=== PATIENT | male | born 1965 | race Caucasian/White ===

== ENCOUNTER 2017-06-11 12:47 | Emergency (ER) | payer BC, MEDICAID ==
[2017-06-11] MEDS ORDERED: Lidocaine 1% 20 ML MDV INJECT ONE (13:24)
[2017-06-11] MEDS ORDERED: Bacitracin Oint 1 GM U/D Packet TOP ONE (13:25)
[2017-06-11] MEDS ORDERED: Bacitracin Oint 1 GM U/D Packet ONE (14:14)
[2017-06-11] MEDS ORDERED: Lidocaine 1% 20 ML MDV ONE (14:14)
--- NOTE | 2017-06-11 14:46 | EDM.PDOC ---
ED HPI GENERAL MEDICAL PROBLEM - General Chief Complaint: Laceration Stated Complaint: RIGHT HAND PINCHED FROM FISH HOUSE Time Seen by Provider: 06/11/17 13:20 Source of Information: Reports: Patient History Limitations: Reports: No Limitations - History of Present Illness INITIAL COMMENTS - FREE TEXT/NARRATIVE: pt had some one back over a hitch with his hand on it. His rt thumb was twisted and has alot of pain when he moves the thumb. He has a 2 inch laceration on the inner aspect of the thumb. Onset: Today Duration: Hour(s): Location: Reports: Upper Extremity, Right Associated Symptoms: Reports: Other (pt had motion of the thumb but it was painful He had normal sensation at the tip of thre thumb. ) Right Hand Pain Score (Numeric/FACES): 10 - Related Data Allergies Allergy/AdvReac Type Severity Reaction Status Date / Time No Known Allergies Allergy Verified 06/11/17 13:26 Home Meds: Home Meds Sertraline HCl [Zoloft] 100 mg PO DAILY 06/11/17 [History] Past Medical History Psychiatric History: Reports: Depression Social & Family History - Tobacco Use Smoking Status *Q: Current Every Day Smoker Years of Tobacco use: 30 Packs/Tins Daily: 0.5 - Caffeine Use Caffeine Use: Reports: Coffee - Recreational Drug Use Recreational Drug Use: No ED ROS GENERAL - Review of Systems Review Of Systems: See Below Constitutional: Reports: No Symptoms HEENT: Reports: No Symptoms Respiratory: Reports: No Symptoms Cardiovascular: Reports: No Symptoms Endocrine: Reports: No Symptoms GI/Abdominal: Reports: No Symptoms : Reports: No Symptoms Musculoskeletal: Reports: Other ( injury to the rt thumb with a trailer hitch) ED EXAM, SKIN/RASH Exam: See Below Text/Narrative:: Pt had an injury to the thumb with a trailer huitch, He has alot of pain with movement of the thumb and he had normal sensation at the tip of the thumb. He was able to flex the thumb and extend it.He had xrays which revealed no fracture present. He had a 2 inch laceration on the inner aspect of the thumb near the knuckle. Extremities: Other ( 2 ich laceration at the inner aspect of the thumb near the knuckle. ) Course - Vital Signs Last Recorded V/S: Last Vital Signs Temp 36.2 C 06/11/17 15:15 Pulse 78 06/11/17 15:15 Resp 16 06/11/17 15:15 BP 126/79 06/11/17 15:15 Pulse Ox 98 06/11/17 15:15 - Orders/Labs/Meds Orders: Active Orders 24 hr Category Date Time Status Vaccines to be Administered [RC] PER UNIT ROUTINE Care 06/11/17 14:52 Active Hand Comp Min 3V Rt [CR] Stat Exams 06/11/17 13:23 Taken Meds: Medications Discontinued Medications Generic Name Dose Route Start Last Admin Trade Name Jaja PRN Reason Stop Dose Admin Bacitracin 1 dose 06/11/17 13:25 06/11/17 14:20 Bacitracin Oint 1 Gm TOP 06/11/17 13:26 1 dose ONETIME ONE Administration Bacitracin Confirm 06/11/17 14:14 06/11/17 14:55 Bacitracin Oint 1 Gm Administered 06/11/17 14:15 Not Given Dose 1 dose .ROUTE .STK-MED ONE Diphtheria/Tetanus/Acell Pertussis 0.5 ml 06/11/17 14:52 06/11/17 15:01 Adacel IM 06/11/17 14:53 0.5 ml .ONCE ONE Administration Lidocaine HCl 20 ml 06/11/17 13:24 06/11/17 14:20 Xylocaine 1% INJECT 06/11/17 13:25 20 ml ONETIME ONE Administration Lidocaine HCl Confirm 06/11/17 14:14 06/11/17 14:55 Xylocaine 1% Administered 06/11/17 14:15 Not Given Dose 20 ml .ROUTE .STK-MED ONE - Re-Assessments/Exams Free Text/Narrative Re-Assessment/Exam: 06/11/17 14:47 He was xrayed and no chips or fractures were seen. The wound was cleaned well and infiltrated with lidocaine. The wound was closwed with 5-0 chromic and 5-0 prolene. It was dressed with bacatraCIN AND HE WILL FOLLOW UP WITH dR John Viramontes. Departure - Departure Time of Disposition: 14:49 Disposition: Home, Self-Care 01 Condition: Fair Clinical Impression: Laceration, Injury of right thumb - Discharge Information Instructions: Laceration Care, Adult, [id number] Referrals: PCP,None [Primary Care Provider] - Forms: ED Department Discharge Care Plan Goals: APPT WITH dR JOHN Viramontes MID WEEK, MOTRIN 600MG Q6H PRN FOR PAIN, COOL PACK OVER THE DRESSING. SR IN 7-8 DAYS. NORCO 5/325 Q6H PRN FOR SEVERE PAIN - My Orders Last 24 Hours: My Active Orders 06/11/17 13:23 Hand Comp Min 3V Rt [CR] Stat 06/11/17 14:52 Vaccines to be Administered [RC] PER UNIT ROUTINE - Assessment/Plan Last 24 Hours: My Active Orders 06/11/17 13:23 Hand Comp Min 3V Rt [CR] Stat 06/11/17 14:52 Vaccines to be Administered [RC] PER UNIT ROUTINE
[2017-06-11] MEDS ORDERED: Diphtheria,Pertussis(Acell),Tetanus Vaccine 0.5 ML SDV IM ONE (14:52)
--- NOTE | 2017-06-13 08:48 | CR ---
Hand Comp Min 3V Rt HISTORY: jamming injury to thumb. FINDINGS: No acute fracture or dislocation is identified. Bony architecture and joint spaces are preserved. S oft tissue laceration is noted. IMPRESSION: Soft tissue laceration right thumb. No acute fracture or dislocation is identified.
== END 2017-06-11 15:15 | disposition home or self-care (01) ==
LOC: JP.ED 12:47
DX: S61.011A Laceration without foreign body of right thumb without damage to nail, initial encounter (principal); F17.210 Nicotine dependence, cigarettes, uncomplicated; F31.9 Bipolar disorder, unspecified; X50.1XXA Overexertion from prolonged static or awkward postures, initial encounter
CPT/HCPCS: 12001; 12002; 73130-26-RT; 73130-RT; 90471; 90715; 99282-25; 99284-25

== ENCOUNTER 2017-10-26 13:04 | Observation (INO) | payer MEDICAID ==
[2017-10-26] MEDS ORDERED: LORazepam 2 MG/ML SDV IVPUSH ONE (13:07)
[2017-10-26] MEDS ORDERED: HYDROmorphone 1 MG/ML Syringe IVPUSH ONE ×2 (13:08→23:24)
--- NOTE | 2017-10-26 13:17 | EDM.PDOC ---
ED HPI GENERAL MEDICAL PROBLEM - General Chief Complaint: Lower Extremity Injury/Pain Stated Complaint: FALL VAI NORTH Time Seen by Provider: 10/26/17 13:13 Source of Information: Reports: Patient History Limitations: Reports: No Limitations - History of Present Illness INITIAL COMMENTS - FREE TEXT/NARRATIVE: pt fell about 8 feet when the deck let loose from the house. The deck landed on the left leg and he is having alot of pain in the leg. Onset: Today Duration: Hour(s): Location: Reports: Lower Extremity, Left Associated Symptoms: Reports: No Other Symptoms Left Feet Pain Score (Numeric/FACES): 10 - Related Data Allergies Allergy/AdvReac Type Severity Reaction Status Date / Time No Known Allergies Allergy Verified 10/26/17 13:09 Home Meds: Home Meds Sertraline HCl [Zoloft] 150 mg PO DAILY 06/11/17 [History] Azithromycin [Zithromax] 250 mg PO BID 10/26/17 [History] Tamsulosin [Tamsulosin 24 Hr] 0.4 mg PO DAILY 10/26/17 [History] Past Medical History Psychiatric History: Reports: Depression Social & Family History - Tobacco Use Smoking Status *Q: Current Every Day Smoker Years of Tobacco use: 30 Packs/Tins Daily: 0.5 - Caffeine Use Caffeine Use: Reports: Coffee - Recreational Drug Use Recreational Drug Use: No Review of Systems - Review of Systems Review Of Systems: See Below Constitutional: Reports: No Symptoms Eyes: Reports: No Symptoms Ears: Reports: No Symptoms Nose: Reports: No Symptoms Mouth/Throat: Reports: No Symptoms Respiratory: Reports: No Symptoms Cardiovascular: Reports: No Symptoms GI/Abdominal: Reports: No Symptoms Genitourinary: Reports: No Symptoms Musculoskeletal: Reports: Other (pt has swelling of the left foot with a small puncture wound, hehas an abrasion on the front of the lower leg. He hadpain in the left hip area. ) ED EXAM, GENERAL - Physical Exam Exam: See Below Free Text/Narrative:: pt arrived after he fll and a deck fell on his left lowr leg. Exam Limited By: No Limitations General Appearance: Alert, Severe Distress Ears: Normal TMs Nose: Normal Inspection Throat/Mouth: Normal Inspection Head: Atraumatic Neck: Normal Inspection Respiratory/Chest: No Respiratory Distress Cardiovascular: Regular Rate, Rhythm GI/Abdominal: Soft, Non-Tender Extremities: Other (left hip is painful, left tib fib area is uncomfortable. The left foot and ankle is swollen. ) Neurological: Alert, Oriented, Normal Cognition Psychiatric: Normal Affect Course - Vital Signs Last Recorded V/S: Last Vital Signs Temp 36.1 C 10/26/17 14:01 Pulse 86 10/26/17 16:36 Resp 16 10/26/17 16:36 BP 101/67 10/26/17 16:36 Pulse Ox 96 10/26/17 16:36 - Orders/Labs/Meds Orders: Active Orders 24 hr Category Date Time Status Pelvis wo Cont [CT] Stat Exams 10/26/17 14:47 Taken CBC WITH AUTO DIFF [HEME] Stat Lab 10/26/17 16:30 Received COMPREHENSIVE METABOLIC PN,CMP [CHEM] Stat Lab 10/26/17 16:30 Received CREATINE KINASE,CK [CHEM] Urgent Lab 10/26/17 16:30 Received UA W/MICROSCOPIC [URIN] Urgent Lab 10/26/17 16:26 Ordered Meds: Medications Discontinued Medications Generic Name Dose Route Start Last Admin Trade Name Billq PRN Reason Stop Dose Admin Hydromorphone HCl 1 mg 10/26/17 13:08 10/26/17 13:19 Dilaudid IVPUSH 10/26/17 13:09 1 mg ONETIME ONE Administration Hydromorphone HCl 0.5 mg 10/26/17 14:50 10/26/17 15:01 Dilaudid IVPUSH 10/26/17 14:51 0.5 mg ONETIME ONE Administration Lorazepam 0.5 mg 10/26/17 13:07 10/26/17 13:18 Ativan IVPUSH 10/26/17 13:08 0.5 mg ONETIME ONE Administration - Re-Assessments/Exams Free Text/Narrative Re-Assessment/Exam: 10/26/17 16:46 xrays of the foot, ankle, leg, and hip and pelvis was obtained. No fractures were seen,because of the severe pain in the pelvis a cat scan of the pelvis was obtained which was neg for acute findings. Departure - Departure Time of Disposition: 16:48 Disposition: Admitted As Inpatient 64 Condition: Fair Clinical Impression: Contusion of left hip, Contusion of foot, left, Abrasion of lower leg - Discharge Information Referrals: PCP,None [Primary Care Provider] - Forms: ED Department Discharge Care Plan Goals: admit to Dr palacio - My Orders Last 24 Hours: My Active Orders 10/26/17 14:47 Pelvis wo Cont [CT] Stat 10/26/17 16:26 UA W/MICROSCOPIC [URIN] Urgent - Assessment/Plan Last 24 Hours: My Active Orders 10/26/17 14:47 Pelvis wo Cont [CT] Stat 10/26/17 16:26 UA W/MICROSCOPIC [URIN] Urgent
--- NOTE | 2017-10-26 13:46 | CR ---
Tibia Fibula Lt CLINICAL HISTORY: Pain, fall FINDINGS: Two views show no evidence of fracture or bone destruction. No soft tissue abnormality is s een. Impression: Negative
--- NOTE | 2017-10-26 13:47 | CR ---
Ankle 2V Lt CLINICAL HISTORY: Pain, trauma FINDINGS: The soft tissues are normal. No acute fracture or dislocation is noted. Ankle mortise is in tact. Articular surfaces are smooth. Impression: Negative
--- NOTE | 2017-10-26 13:49 | CR ---
Foot Comp Min 3V Lt CLINICAL HISTORY: Pain, trauma FINDINGS: There is no acute fracture or dislocation within the foot. No destructive changes are prese nt. IMPRESSION: No acute bony process.
--- NOTE | 2017-10-26 13:51 | CR ---
Hip Min 2V or 3V w Pelvis Lt CLINICAL HISTORY: Pain, trauma FINDINGS: No acute fracture or dislocation is noted. No destructive changes are present. The joint sp aces are maintained. Impression: No fracture or dislocation
[2017-10-26] MEDS ORDERED: HYDROmorphone 0.5 MG/0.5 ML Syringe IVPUSH ONE (14:50)
--- NOTE | 2017-10-26 17:50 | PCM.HP ---
H&P History of Present Illness - General Date of Service: 10/26/17 Admit Problem/Dx: Admission Diagnosis/Problem Admission Diagnosis/Problem Injury Source of Information: Patient, Provider, RN Notes Reviewed History Limitations: Reports: No Limitations - History of Present Illness Initial Comments - Free Text/Narative: Mr. Bro is a 52-year-old gentleman who is admitted to observation status for further evaluation and management of traumatic soft tissue injury to his left leg and foot. He was working on a deck this morning, when the deck fell away from the house approximately 8 feet. As it fell he became entangled in the deck and his left foot was caught underneath it as it fell. On arrival in the emergency department he reported severe pain in his foot and leg. X-rays of the foot lower leg and upper leg were all negative for any evidence of fracture. CT scan of the pelvis and hips showed no evidence of fracture. He has been hemodynamically stable with no evidence of significant bleeding, there is swelling noted in the left foot and tenderness to palpation. Laboratory studies including CK are unremarkable. Left Feet Pain Score (Numeric/FACES): 6 Left Hip Pain Score (Numeric/FACES): 10 - Related Data Allergies/Adverse Reactions: Allergies Allergy/AdvReac Type Severity Reaction Status Date / Time No Known Allergies Allergy Verified 10/26/17 13:09 Home Medications: Home Meds Sertraline HCl [Zoloft] 150 mg PO DAILY 06/11/17 [History] Azithromycin [Zithromax] 250 mg PO BID 10/26/17 [History] Tamsulosin [Tamsulosin 24 Hr] 0.4 mg PO DAILY 10/26/17 [History] Past Medical History HEENT History: Reports: Impaired Vision Respiratory History: Reports: COPD Genitourinary History: Reports: Other (See Below) Other Genitourinary History: past ruptured bladder Musculoskeletal History: Reports: Fracture Other Musculoskeletal History: collar bone Neurological History: Reports: Concussion Psychiatric History: Reports: Depression - Infectious Disease History Infectious Disease History: Reports: Chicken Pox - Past Surgical History GI Surgical History: Reports: Hernia, Inguinal Musculoskeletal Surgical History: Reports: Other (See Below) Other Musculoskeletal Surgeries/Procedures:: thumb surgery Social & Family History - Tobacco Use Smoking Status *Q: Current Every Day Smoker Years of Tobacco use: 30 Packs/Tins Daily: 0.5 Used Tobacco, but Quit: No Second Hand Smoke Exposure: Yes - Caffeine Use Caffeine Use: Reports: Coffee - Recreational Drug Use Recreational Drug Use: No H&P Review of Systems - Review of Systems: Review Of Systems: See Below General: Denies: Fever, Chills, Weakness HEENT: Reports: No Symptoms Pulmonary: Reports: No Symptoms Cardiovascular: Reports: No Symptoms Gastrointestinal: Reports: No Symptoms Genitourinary: Reports: No Symptoms Musculoskeletal: Reports: Leg Pain, Foot Pain Skin: Reports: No Symptoms Psychiatric: Reports: No Symptoms Neurological: Reports: No Symptoms Hematologic/Lymphatic: Reports: No Symptoms Immunologic: Reports: No Symptoms Exam - Exam Exam: See Below - Vital Signs Vital Signs: Last Vital Signs Temp 97.0 F 10/26/17 14:01 Pulse 86 10/26/17 16:36 Resp 16 10/26/17 16:36 BP 101/67 10/26/17 16:36 Pulse Ox 96 10/26/17 16:36 Weight: 220 lb - Exam General: Alert, Oriented, Cooperative, Moderate Distress HEENT: Conjunctiva Clear, Hearing Intact, Mucosa Moist & [place], Normal Nasal Septum, Posterior Pharynx Clear, Pupils Equal, Pupils Reactive Neck: Supple, Trachea Midline, +2 Carotid Pulse wo Bruit Lungs: Clear to Auscultation, Normal Respiratory Effort Cardiovascular: Regular Rate, Regular Rhythm, Normal S1, Normal S2. No: Systolic Murmur, Diastolic Murmur GI/Abdominal Exam: Soft, Non-Tender, No Organomegaly, No Distention Extremities: Leg Pain, Other (Pain and swelling of the left foot and leg). No: Non-Tender Skin: Warm, Dry, Intact Neurological: Cranial Nerves Intact, Strength Equal Bilateral, Normal Speech, Normal Tone, Sensation Intact. No: Focal Deficit Neuro Extensive - Mental Status: Alert, Oriented x3, Normal Mood/Affect, Normal Cognition, Memory Intact - Patient Data Lab Results Last 24 hrs: Laboratory Results - last 24 hr 10/26/17 10/26/17 10/26/17 Range/Units 16:26 16:30 16:30 WBC 11.4 H (4.5-11.0) K/uL RBC 5.14 (4.30-5.90) M/uL Hgb 14.7 (12.0-15.0) g/dL Hct 43.3 (40.0-54.0) % MCV 84 (80-98) fL MCH 29 (27-31) pg MCHC 34 (32-36) % Plt Count 243 (150-400) K/uL Neut % (Auto) 73 H (36-66) % Lymph % (Auto) 17 L (24-44) % [place] % (Auto) 9 H (2-6) % Eos % (Auto) 1 L (2-4) % Baso % (Auto) 0 (0-1) % Sodium 140 (140-148) mmol/L Potassium 3.9 (3.6-5.2) mmol/L Chloride 106 (100-108) mmol/L Carbon Dioxide 25 (21-32) mmol/L Anion Gap 9.1 (5.0-14.0) mmol/L BUN 16 (7-18) mg/dL Creatinine 0.9 (0.8-1.3) mg/dL Est Cr Clr Drug Dosing 96.88 mL/min Estimated GFR (MDRD) > 60 (>60) Glucose 91 (74-106) mg/dL Calcium 8.0 L (8.5-10.1) mg/dL Total Bilirubin 0.6 (0.2-1.0) mg/dL AST 28 (15-37) U/L ALT 29 (12-78) U/L Alkaline Phosphatase 65 (46-116) U/L Creatine Kinase (39-308) U/L Total Protein 6.5 (6.4-8.2) g/dL Albumin 3.3 L (3.4-5.0) g/dL Globulin 3.2 (2.3-3.5) g/dL Albumin/Globulin Ratio 1.0 L (1.2-2.2) Urine Color Yellow Urine Appearance Clear Urine pH 8.0 (4.5-8.0) Ur Specific [place] 1.010 (1.008-1.030) Urine Protein Negative (NEGATIVE) mg/dL Urine Glucose (UA) Normal (NEGATIVE) mg/dL Urine Ketones Negative (NEGATIVE) mg/dL Urine Occult Blood Negative (NEGATIVE) Urine Nitrite Negative (NEGAITVE) Urine Bilirubin Negative (NEGATIVE) Urine Urobilinogen Normal (NORMAL) mg/dL Ur Leukocyte Esterase Negative (NEGATIVE) Urine RBC 0-5 (0-5) Urine WBC 0-5 (0-5) Ur Epithelial Cells Rare Amorphous Sediment Not seen Urine Bacteria Few Urine Mucus Many 10/26/17 Range/Units 16:30 WBC (4.5-11.0) K/uL RBC (4.30-5.90) M/uL Hgb (12.0-15.0) g/dL Hct (40.0-54.0) % MCV (80-98) fL MCH (27-31) pg MCHC (32-36) % Plt Count (150-400) K/uL Neut % (Auto) (36-66) % Lymph % (Auto) (24-44) % [place] % (Auto) (2-6) % Eos % (Auto) (2-4) % Baso % (Auto) (0-1) % Sodium (140-148) mmol/L Potassium (3.6-5.2) mmol/L Chloride (100-108) mmol/L Carbon Dioxide (21-32) mmol/L Anion Gap (5.0-14.0) mmol/L BUN (7-18) mg/dL Creatinine (0.8-1.3) mg/dL Est Cr Clr Drug Dosing mL/min Estimated GFR (MDRD) (>60) Glucose (74-106) mg/dL Calcium (8.5-10.1) mg/dL Total Bilirubin (0.2-1.0) mg/dL AST (15-37) U/L ALT (12-78) U/L Alkaline Phosphatase (46-116) U/L Creatine Kinase 217 (39-308) U/L Total Protein (6.4-8.2) g/dL Albumin (3.4-5.0) g/dL Globulin (2.3-3.5) g/dL Albumin/Globulin Ratio (1.2-2.2) Urine Color Urine Appearance Urine pH (4.5-8.0) Ur Specific [place] (1.008-1.030) Urine Protein (NEGATIVE) mg/dL Urine Glucose (UA) (NEGATIVE) mg/dL Urine Ketones (NEGATIVE) mg/dL Urine Occult Blood (NEGATIVE) Urine Nitrite (NEGAITVE) Urine Bilirubin (NEGATIVE) Urine Urobilinogen (NORMAL) mg/dL Ur Leukocyte Esterase (NEGATIVE) Urine RBC (0-5) Urine WBC (0-5) Ur Epithelial Cells Amorphous Sediment Urine Bacteria Urine Mucus Result Diagrams: 10/26/17 16:30 10/26/17 16:30 *Q Meaningful Use (ADM) - VTE *Q VTE Pharmacological Contraindications *Q: Risk of Bleeding - VTE Risk Assess *Q Each Risk Factor Represents 1 Point: Age 41 - 59 years Total Score 1 Point Risk Factors: 1 Each Risk Factor Represents 2 Points: None Total Score 2 Point Risk Factors: 0 Each Risk Factor Represents 3 Points: None Total Score 3 Point Risk Factors: 0 Each Risk Factor Represents 5 Points: None Total Score 5 Point Risk Factors: 0 Venous Thromboembolism Risk Factor Score *Q: 1 Problem List Initiated/Reviewed/Updated: Yes Orders Last 24hrs: Active Orders 24 hr Category Date Time Status Patient Status Manage Transfer [TRANSFER] Routine ADT 10/26/17 17:45 Ordered Pelvis wo Cont [CT] Stat Exams 10/26/17 14:47 Taken UA W/MICROSCOPIC [URIN] Urgent Lab 10/26/17 16:26 Ordered Resuscitation Status Routine Resus Stat 10/26/17 17:46 Ordered Assessment/Plan Comment:: ASSESSMENT AND PLAN TRAUMATIC SOFT TISSUE INJURY LEFT LEG AND FOOT-no evidence of fracture identified on x-rays as well as CT scan, significant swelling in the foot but toes are warm to palpation. -IV fluids for hydration -Pain medication as needed -PT consult in a.m. MAINTENANCE ISSUES -DVT prophylaxis; hold on SCUDs as well as anticoagulation because of injury to the left leg, ambulation -GI prophylaxis; not indicated -Anaya catheter; not indicated -Nutrition; regular diet -Nicotine dependence;14 mg nicotine patch, nicotine gum CODE STATUS-FULL CODE ADMISSION STATUS-this patient will be admitted to observation status, expect no more than a one night hospital stay for evaluation and management of problems as outlined above. DISPOSITION-anticipate discharge to home after the hospital stay. PRIMARY CARE PROVIDER-
[2017-10-26] MEDS ORDERED: Albuterol 0.083% 2.5 MG/3 ML Neb Soln NEB PRN (17:52)
[2017-10-26] MEDS ORDERED: Sodium Chloride 0.9% 10 ML Syringe FLUSH PRN (17:52)
[2017-10-26] MEDS ORDERED: Ondansetron 4 MG/2 ML SDV IV PRN (17:52)
[2017-10-26] MEDS: oxyCODONE 5 MG Tab PO PRN ×2 (18:19→23:05)
[2017-10-26] MEDS: Sodium Chloride 0.9% 1,000 ML IV SCH (18:55)
[2017-10-26] MEDS ORDERED: Nicotine Polacrilex 2 MG Gum CHEW PRN (18:56)
[2017-10-26] MEDS: Nicotine 14 MG/24 Hr Patch TRDERM SCH (19:47)
[2017-10-26] MEDS: HYDROmorphone 0.5 MG/0.5 ML Syringe IVPUSH PRN ×2 (19:51→23:34)
[2017-10-26] MEDS: Azithromycin 250 MG Tab PO SCH (20:28)
--- NOTE | 2017-10-26 23:22 | PCM.SN ---
- Free Text/Narrative Note: time: 23:10 consult ; left leg trauma s: complaints left leg pain and headache o: left leg edema noted from mid calf to toes, redness and bruising is noted distal foot and toes. capillary refill less than 3 seconds, foot is warm to touch. extremely painful to any movement of the left leg. rates pain 10/10. Unable to palpate pulses and left foot due to edema and pain. Pulses are noted in the left foot. a: left leg pain secondary to trauma p; continue present plan of care, did advised nursing to give Dilaudid IV for breakthrough pain.
[2017-10-27] MEDS: Sodium Chloride 0.9% 1,000 ML IV SCH (02:51)
[2017-10-27] MEDS: Acetaminophen 325 MG Tab PO PRN ×3 (03:02→23:44)
[2017-10-27] MEDS: oxyCODONE 5 MG Tab PO PRN ×6 (03:02→23:43)
[2017-10-27] MEDS: HYDROmorphone 0.5 MG/0.5 ML Syringe IVPUSH PRN ×5 (04:14→21:31)
[2017-10-27] MEDS ORDERED: Pneumococcal Polyvalent-23 Vaccine 0.5 ML SDV IM ONE (09:00)
[2017-10-27] MEDS: Sertraline 50 MG Tab PO SCH (09:16)
[2017-10-27] MEDS: Nicotine 14 MG/24 Hr Patch TRDERM SCH (09:16)
[2017-10-27] MEDS: Azithromycin 250 MG Tab PO SCH ×2 (09:17→21:28)
[2017-10-27] MEDS: Tamsulosin 0.4 MG Cap.ER PO SCH (09:17)
[2017-10-27] MEDS: Docusate Sodium 100 MG Cap PO SCH ×2 (09:17→21:28)
--- NOTE | 2017-10-27 12:32 | CR ---
Orbits FB For MRI Bi CLINICAL HISTORY: Screening for metal, MRI FINDINGS: No metallic radiopacity is identified in the region of the orbits or face IMPRESSION: No me tallic foreign body retained
--- NOTE | 2017-10-27 17:04 | PCM.PN ---
- General Info Date of Service: 10/27/17 Subjective Update: This patient continues to experience significant pain in his left foot and ankle. MRI of the foot and ankle was obtained today and does show a small calcaneus fracture, likely the cause of his current symptoms. Reviewed with certified coatings inspector forestry contractor in [place], who recommended placement in a Cam Walker. Touch weight only with ambulation and follow-up appointment with podiatry as an outpatient next week. Functional Status: Reports: Pain Controlled, Tolerating Diet, Urinating - Review of Systems General: Denies: Fever, Chills Pulmonary: Reports: No Symptoms Cardiovascular: Reports: No Symptoms Gastrointestinal: Reports: No Symptoms Musculoskeletal: Reports: Foot Pain - Patient Data Vitals - Most Recent: Last Vital Signs Temp 97.2 F 10/27/17 16:38 Pulse 91 10/27/17 16:38 Resp 18 10/27/17 16:38 BP 95/56 L 10/27/17 16:38 Pulse Ox 90 L 10/27/17 16:38 Weight - Most Recent: 223 lb 14.388 oz I&O - Last 24 Hours: Intake & Output 10/27/17 10/27/17 10/27/17 06:59 14:59 22:59 Intake Total 1290 500 Output Total 625 Balance 1290 -125 Lab Results Last 24 Hours: Laboratory Results - last 24 hr 10/26/17 10/26/17 10/26/17 Range/Units 16:26 16:30 16:30 WBC (4.5-11.0) K/uL RBC (4.30-5.90) M/uL Hgb (12.0-15.0) g/dL Hct (40.0-54.0) % MCV (80-98) fL MCH (27-31) pg MCHC (32-36) % Plt Count (150-400) K/uL Neut % (Auto) (36-66) % Lymph % (Auto) (24-44) % [place] % (Auto) (2-6) % Eos % (Auto) (2-4) % Baso % (Auto) (0-1) % Sodium 140 (140-148) mmol/L Potassium 3.9 (3.6-5.2) mmol/L Chloride 106 (100-108) mmol/L Carbon Dioxide 25 (21-32) mmol/L Anion Gap 9.1 (5.0-14.0) mmol/L BUN 16 (7-18) mg/dL Creatinine 0.9 (0.8-1.3) mg/dL Est Cr Clr Drug Dosing 96.88 mL/min Estimated GFR (MDRD) > 60 (>60) Glucose 91 (74-106) mg/dL Calcium 8.0 L (8.5-10.1) mg/dL Total Bilirubin 0.6 (0.2-1.0) mg/dL AST 28 (15-37) U/L ALT 29 (12-78) U/L Alkaline Phosphatase 65 (46-116) U/L Creatine Kinase 217 (39-308) U/L Total Protein 6.5 (6.4-8.2) g/dL Albumin 3.3 L (3.4-5.0) g/dL Globulin 3.2 (2.3-3.5) g/dL Albumin/Globulin Ratio 1.0 L (1.2-2.2) Urine Color Yellow Urine Appearance Clear Urine pH 8.0 (4.5-8.0) Ur Specific [place] 1.010 (1.008-1.030) Urine Protein Negative (NEGATIVE) mg/dL Urine Glucose (UA) Normal (NEGATIVE) mg/dL Urine Ketones Negative (NEGATIVE) mg/dL Urine Occult Blood Negative (NEGATIVE) Urine Nitrite Negative (NEGAITVE) Urine Bilirubin Negative (NEGATIVE) Urine Urobilinogen Normal (NORMAL) mg/dL Ur Leukocyte Esterase Negative (NEGATIVE) Urine RBC 0-5 (0-5) Urine WBC 0-5 (0-5) Ur Epithelial Cells Rare Amorphous Sediment Not seen Urine Bacteria Few Urine Mucus Many 10/27/17 10/27/17 10/27/17 Range/Units 05:15 05:15 05:15 WBC 9.3 (4.5-11.0) K/uL RBC 4.94 (4.30-5.90) M/uL Hgb 14.2 (12.0-15.0) g/dL Hct 42.2 (40.0-54.0) % MCV 85 (80-98) fL MCH 29 (27-31) pg MCHC 34 (32-36) % Plt Count 227 (150-400) K/uL Neut % (Auto) 67 H (36-66) % Lymph % (Auto) 19 L (24-44) % Davidson % (Auto) 12 H (2-6) % Eos % (Auto) 2 (2-4) % Baso % (Auto) 0 (0-1) % Sodium 140 (140-148) mmol/L Potassium 4.0 (3.6-5.2) mmol/L Chloride 108 (100-108) mmol/L Carbon Dioxide 27 (21-32) mmol/L Anion Gap 5.5 (5.0-14.0) mmol/L BUN 13 (7-18) mg/dL Creatinine 0.8 (0.8-1.3) mg/dL Est Cr Clr Drug Dosing 108.99 mL/min Estimated GFR (MDRD) > 60 (>60) Glucose 110 H (74-106) mg/dL Calcium 7.6 L (8.5-10.1) mg/dL Total Bilirubin (0.2-1.0) mg/dL AST (15-37) U/L ALT (12-78) U/L Alkaline Phosphatase (46-116) U/L Creatine Kinase 489 H (39-308) U/L Total Protein (6.4-8.2) g/dL Albumin (3.4-5.0) g/dL Globulin (2.3-3.5) g/dL Albumin/Globulin Ratio (1.2-2.2) Urine Color Urine Appearance Urine pH (4.5-8.0) Ur Specific [place] (1.008-1.030) Urine Protein (NEGATIVE) mg/dL Urine Glucose (UA) (NEGATIVE) mg/dL Urine Ketones (NEGATIVE) mg/dL Urine Occult Blood (NEGATIVE) Urine Nitrite (NEGAITVE) Urine Bilirubin (NEGATIVE) Urine Urobilinogen (NORMAL) mg/dL Ur Leukocyte Esterase (NEGATIVE) Urine RBC (0-5) Urine WBC (0-5) Ur Epithelial Cells Amorphous Sediment Urine Bacteria Urine Mucus Med Orders - Current: Current Medications Acetaminophen (Tylenol) 650 mg PO Q4H PRN PRN Reason: Pain (Mild 1-3)/fever Last Admin: 10/27/17 03:02 Dose: 650 mg Albuterol (Proventil Neb Soln) 2.5 mg NEB Q4H PRN PRN Reason: Shortness Of Breath/wheezing Azithromycin (Zithromax) 250 mg PO BID [facility] Last Admin: 10/27/17 09:17 Dose: 250 mg Docusate Sodium (Colace) 100 mg PO BID [facility] Last Admin: 10/27/17 09:17 Dose: 100 mg Hydromorphone HCl (Dilaudid) 0.5 mg IVPUSH Q2H PRN PRN Reason: Pain Last Admin: 10/27/17 14:05 Dose: 0.5 mg Nicotine (Habitrol) 14 mg TRDERM DAILY [facility] Last Admin: 10/27/17 09:16 Dose: 14 mg Nicotine Polacrilex (Nicorelief) 2 mg CHEW Q1H PRN PRN Reason: Other Last Admin: 10/27/17 16:20 Dose: 2 mg Ondansetron HCl (Zofran) 4 mg IV Q4H PRN PRN Reason: Nausea/Vomiting Oxycodone HCl (Oxycodone) 5 - 10 mg PO Q4H PRN PRN Reason: Pain (moderate 4-6) Last Admin: 10/27/17 15:37 Dose: 10 mg Sertraline HCl (Zoloft) 150 mg PO DAILY [facility] Last Admin: 10/27/17 09:16 Dose: 150 mg Sodium Chloride (Saline Flush) 10 ml FLUSH ASDIRECTED PRN PRN Reason: Keep Vein Open Last Admin: 10/26/17 19:52 Dose: 10 ml Tamsulosin HCl (Flomax) 0.4 mg PO DAILY [facility] Last Admin: 10/27/17 09:17 Dose: 0.4 mg Discontinued Medications Hydromorphone HCl (Dilaudid) 1 mg IVPUSH ONETIME ONE Stop: 10/26/17 13:09 Last Admin: 10/26/17 13:19 Dose: 1 mg Hydromorphone HCl (Dilaudid) 0.5 mg IVPUSH ONETIME ONE Stop: 10/26/17 14:51 Last Admin: 10/26/17 15:01 Dose: 0.5 mg Hydromorphone HCl (Dilaudid) 1 mg IVPUSH ONETIME ONE Stop: 10/26/17 23:25 Last Admin: 10/27/17 01:45 Dose: Not Given Sodium Chloride (Normal Saline) 1,000 mls @ 125 mls/hr IV ASDIRECTED [facility] Last Admin: 10/27/17 02:51 Dose: 125 mls/hr Lorazepam (Ativan) 0.5 mg IVPUSH ONETIME ONE Stop: 10/26/17 13:08 Last Admin: 10/26/17 13:18 Dose: 0.5 mg Oxycodone HCl (Oxycodone) 5 mg PO Q4H PRN PRN Reason: Pain (moderate 4-6) Last Admin: 10/27/17 03:02 Dose: 5 mg Pneumococcal Polyvalent Vaccine (Pneumovax 23) 0.5 ml IM .ONCE ONE Stop: 10/27/17 09:01 Last Admin: 10/27/17 09:41 Dose: 0.5 ml - Exam General: Alert, Oriented, Cooperative, No Acute Distress Lungs: Clear to Auscultation, Normal Respiratory Effort Cardiovascular: Regular Rate, Regular Rhythm, No Murmurs GI/Abdominal Exam: Soft, Non-Tender, No Organomegaly, No Distention Extremities: Other (Swelling left foot and ankle, toes are warm to palpation) Skin: Warm, Dry, Intact - Problem List Review Problem List Initiated/Reviewed/Updated: Yes - My Orders Last 24 Hours: My Active Orders 10/26/17 17:46 Resuscitation Status Routine 10/26/17 17:52 Patient Status [ADT] Routine Ambulate [RC] QID Height and Weight [RC] DAILY Intake and Output [RC] QSHIFT Notify Provider Vital Signs [RC] ASDIRECTED Oxygen Therapy [RC] PRN Peripheral IV Care [RC] . DIRECTED RT Aerosol Therapy [RC] ASDIRECTED Up With Assistance [RC] ASDIRECTED Up to Chair [RC] QID VTE/DVT Education [RC] Per Unit Routine Vital Signs [RC] Q4H PT Evaluation and Treatment [CONS] Routine Acetaminophen [Tylenol] 650 mg PO Q4H PRN Albuterol [Proventil Neb Soln] 2.5 mg NEB Q4H PRN HYDROmorphone [Dilaudid] 0.5 mg IVPUSH Q2H PRN Ondansetron [Zofran] 4 mg IV Q4H PRN Sodium Chloride 0.9% [Saline Flush] 10 ml FLUSH ASDIRECTED PRN Peripheral IV Insertion Adult [OM.PC] Routine 10/26/17 18:56 Nicotine Polacrilex [Nicorelief] 2 mg CHEW Q1H PRN 10/26/17 19:00 Nicotine [Habitrol] 14 mg TRDERM DAILY 10/26/17 21:00 Azithromycin [Zithromax] 250 mg PO BID 10/26/17 Dinner Regular Diet [DIET] 10/27/17 09:00 Sertraline [Zoloft] 150 mg PO DAILY Tamsulosin [Flomax] 0.4 mg PO DAILY 10/27/17 10:42 Lwr Ext Joint wo Cont Lt [MR] Stat 10/27/17 10:44 Convert IV to Saline Lock [OM.PC] Routine 10/27/17 11:19 Lwr Ext Non Joint wo Cont Lt [MR] Routine 10/27/17 16:57 Communication Order [RC] ASDIRECTED - Plan Plan:: ASSESSMENT AND PLAN TRAUMATIC SOFT TISSUE INJURY LEFT LEG AND ANKLE- calcaneus fracture identified on MRI today -Cam Walker left foot, touch weightbearing only -Pain medication as needed -PT follow-up MAINTENANCE ISSUES -DVT prophylaxis; Lovenox 40 mg subcutaneous daily -GI prophylaxis; not indicated -Anaya catheter; not indicated -Nutrition; regular diet -Nicotine dependence;14 mg nicotine patch, nicotine gum CODE STATUS-FULL CODE ADMISSION STATUS-this patient will be admitted to observation status, expect no more than a one night hospital stay for evaluation and management of problems as outlined above. DISPOSITION-anticipate discharge to home after the hospital stay. PRIMARY CARE PROVIDER-
[2017-10-27] MEDS: Ibuprofen 600 MG Tab PO SCH ×2 (17:51→23:43)
[2017-10-27] MEDS ORDERED: Enoxaparin 40 MG/0.4 ML Syringe SUBCUT SCH (18:00)
[2017-10-28] MEDS: oxyCODONE 5 MG Tab PO PRN ×3 (03:38→11:39)
[2017-10-28] MEDS: Ibuprofen 600 MG Tab PO SCH ×2 (06:36→13:24)
[2017-10-28] MEDS: Acetaminophen 325 MG Tab PO PRN ×2 (07:24→11:39)
[2017-10-28] MEDS: Docusate Sodium 100 MG Cap PO SCH (09:48)
[2017-10-28] MEDS: Tamsulosin 0.4 MG Cap.ER PO SCH (09:49)
[2017-10-28] MEDS: Sertraline 50 MG Tab PO SCH (09:49)
[2017-10-28] MEDS: Nicotine 14 MG/24 Hr Patch TRDERM SCH (09:49)
[2017-10-28] MEDS: Azithromycin 250 MG Tab PO SCH (09:50)
--- NOTE | 2017-10-28 11:06 | PCM.DCSUM1 ---
Discharge Summary - Hospital Course Brief History: This patient is a 52-year-old gentleman who is admitted to observation status for further evaluation and management of a traumatic injury to his left foot and lower leg. - Discharge Data Discharge Date: 10/28/17 Discharge Disposition: Home, Self-Care 01 Condition: Fair - Discharge Diagnosis/Problem(s) (1) Calcaneal fracture SNOMED Code(s): 258787543 ICD Code: S92.009A - UNSP FRACTURE OF UNSP CALCANEUS, INIT FOR CLOS FX Status: Acute Current Visit: Yes (2) Traumatic rupture of tendon of left foot SNOMED Code(s): 057307146 ICD Code: S96.912A - STRAIN OF UNSP MSL/TND AT ANK/FT LEVEL, LEFT FOOT, INIT Status: Acute Current Visit: Yes (3) Contusion of foot, left SNOMED Code(s): 67132655, [id number] ICD Code: S90.32XA - CONTUSION OF LEFT FOOT, INITIAL ENCOUNTER Status: Acute Current Visit: Yes - Patient Summary/Data Consults: Consultations 10/26/17 17:52 PT Evaluation and Treatment [CONS] Routine Please Evaluate and Treat. PT Reason for Consult: Traumatic soft tissue injury left leg and foot This query below is only for informational purposes and is not editable. 10/27/17 22:12 Consult to Occupational Therapy [OT Evaluation and Treatment] [CONS] Routine Please Evaluate and Treat. OT Reason for Consult: navigation/equipment; broken heel This query below is only for informational purposes and is not editable. Admission Diagnosis/Problem: Injury Hospital Course: Mr. Bro is a 52-year-old gentleman who is admitted to observation status for further evaluation and management of traumatic soft tissue injury to his left leg and foot. He was working on a deck earlier in the day, when the deck fell away from the house approximately 8 feet. As it fell he became entangled in the deck and his left foot was caught underneath it as it fell. On arrival in the emergency department he reported severe pain in his foot and leg. X-rays of the foot lower leg and upper leg were all negative for any evidence of fracture. CT scan of the pelvis and hips showed no evidence of fracture. He has been hemodynamically stable with no evidence of significant bleeding, there is swelling noted in the left foot and tenderness to palpation. On admission he was given IV fluids for hydration as well as pain medication as needed. He had severe pain throughout the night and had difficulty with any type of ambulation. MRI of the ankle and foot were obtained and showed evidence of a calcaneus fracture as well as some ligamentous and tendon damage. He was given additional 24 hours on observation and placed in a cam walker. He will be discharged home with a Cam Walker on the left foot and use of a 2 wheeled walker. He will be instructed for touch weightbearing only using the left foot. He will resume his usual diet and a follow-up appointment will be scheduled with his primary care provider within one week. Follow-up appointment will also be scheduled with Dr. Beck for an appointment next week and copies of the MRI reports will be faxed to Dr. Beck. - Patient Instructions Diet: Usual Diet as Tolerated Activity, Other: Touch weightbearing only left leg, use a walker or crutches when ambulating Driving: Do Not Drive Other/Special Instructions: Please schedule a follow-up appointment with primary care within 1 week. Please schedule appointment in podiatry clinic [place] with Dr. Beck within one week. Please fax a copy of the MRI reports to Dr. Beck. - Discharge Plan Prescriptions/Med Rec: oxyCODONE 5 - 10 mg PO Q4H PRN #30 tablet PRN Reason: Pain (Moderate 4-6) Home Medications: Home Meds Sertraline HCl [Zoloft] 150 mg PO DAILY 06/11/17 [History] Azithromycin [Zithromax] 250 mg PO BID 10/26/17 [History] Tamsulosin [Flomax] 0.4 mg PO DAILY 10/26/17 [History] Ibuprofen [IJD: Ibuprofen] 400 mg PO Q6H PRN #0 tablet 10/28/17 [Rx] oxyCODONE 5 - 10 mg PO Q4H PRN #30 tablet 10/28/17 [Rx] Referrals: Fernando Beck DPM [Consulting Physician] - Daniele Hinds MD [Physician] - - Discharge Summary/Plan Comment DC Time >30 min.: No - Patient Data Vitals - Most Recent: Last Vital Signs Temp 97.2 F 10/28/17 10:37 Pulse 65 10/28/17 10:37 Resp 18 10/28/17 10:37 BP 105/74 10/28/17 10:37 Pulse Ox 95 10/28/17 10:37 Weight - Most Recent: 223 lb 14.388 oz I&O - Last 24 hours: Intake & Output 10/27/17 10/28/17 10/28/17 22:59 06:59 14:59 Intake Total 1958 700 400 Output Total 1250 Balance 708 700 400 Med Orders - Current: Current Medications Acetaminophen (Tylenol) 650 mg PO Q4H PRN PRN Reason: Pain (Mild 1-3)/fever Last Admin: 10/28/17 07:24 Dose: 650 mg Albuterol (Proventil Neb Soln) 2.5 mg NEB Q4H PRN PRN Reason: Shortness Of Breath/wheezing Azithromycin (Zithromax) 250 mg PO BID [facility] Last Admin: 10/28/17 09:50 Dose: 250 mg Docusate Sodium (Colace) 100 mg PO BID [facility] Last Admin: 10/28/17 09:48 Dose: 100 mg Enoxaparin Sodium (Lovenox) 40 mg SUBCUT Q24H [facility] Last Admin: 10/27/17 17:51 Dose: 40 mg Hydromorphone HCl (Dilaudid) 0.5 mg IVPUSH Q2H PRN PRN Reason: Pain Last Admin: 10/27/17 21:31 Dose: 0.5 mg Ibuprofen (Motrin) 600 mg PO Q6H [facility] Last Admin: 10/28/17 06:36 Dose: 600 mg Nicotine (Habitrol) 14 mg TRDERM DAILY [facility] Last Admin: 10/28/17 09:49 Dose: 14 mg Nicotine Polacrilex (Nicorelief) 2 mg CHEW Q1H PRN PRN Reason: Other Last Admin: 10/27/17 16:20 Dose: 2 mg Ondansetron HCl (Zofran) 4 mg IV Q4H PRN PRN Reason: Nausea/Vomiting Oxycodone HCl (Oxycodone) 5 - 10 mg PO Q4H PRN PRN Reason: Pain (moderate 4-6) Last Admin: 10/28/17 07:23 Dose: 10 mg Sertraline HCl (Zoloft) 150 mg PO DAILY [facility] Last Admin: 10/28/17 09:49 Dose: 150 mg Sodium Chloride (Saline Flush) 10 ml FLUSH ASDIRECTED PRN PRN Reason: Keep Vein Open Last Admin: 10/26/17 19:52 Dose: 10 ml Tamsulosin HCl (Flomax) 0.4 mg PO DAILY [facility] Last Admin: 10/28/17 09:49 Dose: 0.4 mg Discontinued Medications Hydromorphone HCl (Dilaudid) 1 mg IVPUSH ONETIME ONE Stop: 10/26/17 13:09 Last Admin: 10/26/17 13:19 Dose: 1 mg Hydromorphone HCl (Dilaudid) 0.5 mg IVPUSH ONETIME ONE Stop: 10/26/17 14:51 Last Admin: 10/26/17 15:01 Dose: 0.5 mg Hydromorphone HCl (Dilaudid) 1 mg IVPUSH ONETIME ONE Stop: 10/26/17 23:25 Last Admin: 10/27/17 01:45 Dose: Not Given Sodium Chloride (Normal Saline) 1,000 mls @ 125 mls/hr IV ASDIRECTED [facility] Last Admin: 10/27/17 02:51 Dose: 125 mls/hr Lorazepam (Ativan) 0.5 mg IVPUSH ONETIME ONE Stop: 10/26/17 13:08 Last Admin: 10/26/17 13:18 Dose: 0.5 mg Oxycodone HCl (Oxycodone) 5 mg PO Q4H PRN PRN Reason: Pain (moderate 4-6) Last Admin: 10/27/17 03:02 Dose: 5 mg Pneumococcal Polyvalent Vaccine (Pneumovax 23) 0.5 ml IM .ONCE ONE Stop: 10/27/17 09:01 Last Admin: 10/27/17 09:41 Dose: 0.5 ml - Exam General: Reports: Alert, Oriented, Cooperative, Moderate Distress Lungs: Reports: Clear to Auscultation, Normal Respiratory Effort Cardiovascular: Reports: Regular Rate, Regular Rhythm, No Murmurs GI/Abdominal Exam: Soft, Non-Tender, No Organomegaly, No Distention Extremities: Other (Persistent swelling and tenderness left foot and ankle) *Q Meaningful Use (DIS) - VTE *Q VTE Pharmacological Contraindications *Q: Risk of Bleeding
== END 2017-10-28 15:05 | disposition home or self-care (01) ==
LOC: JP.ED 13:04 → JP.MS 17:52
PROVIDERS: ADMIT Hospitalist; ATTEND Hospitalist
DX: S92.002A Unspecified fracture of left calcaneus, initial encounter for closed fracture (principal); J44.9 Chronic obstructive pulmonary disease, unspecified; F17.210 Nicotine dependence, cigarettes, uncomplicated; W20.8XXA Other cause of strike by thrown, projected or falling object, initial encounter; Z79.899 Other long term (current) drug therapy
CPT/HCPCS: 36415; 70030; 72192; 73502; 73590; 73600; 73630; 73718; 73721; 80048; 80053; 81001; 82550; 85025; 90732; 96361; 96372; 96374; 96375; 96376; 97110; 97162; 97165; 97530; 97535; 97760; 99285; A9270; G0378; J1170; J1650; J2060; J7040; J7050